=== PATIENT | male | born 1990 | race Caucasian/White ===

== ENCOUNTER 2024-07-13 18:17 | Emergency (ER) | payer OTHER ==
[2024-07-13] MEDS ORDERED: Albuterol 200 PUFF (6.7GM INHALER) ONE (18:36)
[2024-07-13] MEDS ORDERED: Doxycycline 100 MG CAP ONE (18:36)
[2024-07-13] MEDS ORDERED: predniSONE 20 MG TAB ONE (18:37)
== END 2024-07-13 18:55 | disposition home or self-care (01) ==
LOC: BURERS 18:17
DX: R06.02 Shortness of breath (principal); B34.9 Viral infection, unspecified
CPT/HCPCS: 93005; J7512